=== PATIENT | female | born 1995 | race Caucasian/White ===

== ENCOUNTER 2022-10-17 21:37 | Emergency (ER) | payer OTHER ==
[~2022-10-17] VITALS: Ht 154.9 cm; Wt 79.4 kg
[2022-10-17 22:10] VITALS: BP 120/60
--- NOTE | 2022-10-17 22:15 | NUR ---
TO LOBBY FOLLOWING TRIAGE AFTER OBTAINING UA
== END 2022-10-18 00:11 | disposition left against medical advice (07) ==
LOC: MED 21:37
DX: R11.0 Nausea (principal); Z53.21 Procedure and treatment not carried out due to patient leaving prior to being seen by health care provider
CPT/HCPCS: 81025; 99281